=== PATIENT | male | born 1960 | race Caucasian/White ===

== ENCOUNTER 2019-02-23 07:17 | Day surgery (SDC) | payer MEDICAID ==
[~2019-02-23] VITALS: Ht 170.2 cm; Wt 81.8 kg
[2019-02-23] VITALS (16 sets, daily range): BP systolic 106–145; BP diastolic 53–85
[2019-02-23] MEDS ORDERED: normal saline 1000ml 1,000 ML IV PRN (07:40)
[2019-02-23] MEDS ORDERED: CAPE500T (08:46)
[2019-02-23] MEDS ORDERED: ONDA8TAB6 PO (08:46)
[2019-02-23] MEDS ORDERED: PROC-8 (08:47)
[2019-02-23 09:29] LABS: BASOPHILS % (AUTO) 0.4 % (0-1); EOSINOPHILS # (AUTO) 0.1 X10'3 (0-0.9); EOSINOPHILS % (AUTO) 1.7 % (0-6); HEMATOCRIT 37.8 % (42.0-52.0); HEMOGLOBIN 12.8 g/dl (14.0-17.9); LYMPHOCYTES # (AUTO) 0.9 X10'3 (1.1-4.8); LYMPHOCYTES % (AUTO) 19.1 % (21-51); MEAN CORPUSCULAR HEMOGLOBIN 29.8 PG (27.0-31.0); MEAN CORPUSCULAR HGB CONC 33.7 g/dL (33.0-36.5); MEAN CORPUSCULAR VOLUME 88.3 FL (78-98); MEAN PLATELET VOLUME 7.3 FL (7.4-10.4); MONOCYTES # (AUTO) 0.4 X10'3 (0-0.9); MONOCYTES % (AUTO) 7.8 % (2-12); NEUTROPHILS # (AUTO) 3.3 X10'3 (1.8-7.7); PLATELET COUNT 195 X10'3 (140-440); RED BLOOD COUNT 4.28 X10'6 (4.70-6.10); RED CELL DISTRIBUTION WIDTH 14.7 % (11.5-14.5); WHITE BLOOD COUNT 4.6 X10'3 (4.5-11.0)
[2019-02-23 09:34] LABS: ALBUMIN 3.5 G/DL (3.4-5.0); ANION GAP 6 (8-16); BLOOD UREA NITROGEN 13 MG/DL (7-18); BUN/CREATININE RATIO 27.1 (5.4-32.0); CALCIUM 8.4 MG/DL (8.5-10.1); CHLORIDE 111 MMOL/L (99-107); CREATININE 0.48 MG/DL (0.60-1.10); GLUCOSE 85 MG/DL (70-104); POTASSIUM 3.9 MMOL/L (3.5-5.1); SODIUM 143 MMOL/L (135-145); TOTAL CARBON DIOXIDE 26.2 MMOL/L (24-32); eGFR > 90 ML/MIN
[2019-02-23] MEDS ORDERED: midazolam 2 mg/2 ml injection ONE (10:12)
[2019-02-23] MEDS ORDERED: fentaNYL/PF 50MCG/1 ML 2ML syringe ONE (10:12)
[2019-02-23] MEDS ORDERED: fentaNYL/PF 50MCG/1 ML 2ML syringe IV PRN (10:15)
[2019-02-23] MEDS ORDERED: midazolam 2 mg/2 ml injection IV PRN (10:15)
[2019-02-23] MEDS ORDERED: LIDOcaine 1% 30ml preserv. free vial SQ ONE (10:15)
[2019-02-23] MEDS ORDERED: gelatin sponge, absorbable (Gelfoam 12-7MM) sponge TP ONE (10:17)
[2019-02-23] MEDS ORDERED: HYDROcodone/acetaminophen 5mg/325mg tablet PO PRN ×2 (11:00)
[2019-02-23 11:04] LABS: ELLIPTOCYTES FEW; PLATELET ESTIMATE NORMAL
[2019-02-23] MEDS ORDERED: heparin sodium, porcine/PF 100unit/ml 5ML syringe IV ONE (14:50)
[2019-02-23] MEDS ORDERED: heparin sodium, porcine/PF 100unit/ml 5ML syringe IV SCH (16:00)
== END 2019-02-23 15:00 | disposition home or self-care (01) ==
LOC: SSTAY O 07:17
PROVIDERS: ATTEND Radiology Vascular & Interventional Radiology
DX: C34.91 Malignant neoplasm of unspecified part of right bronchus or lung (principal); Z85.038 Personal history of other malignant neoplasm of large intestine; Z79.899 Other long term (current) drug therapy; Z98.890 Other specified postprocedural states
CPT/HCPCS: 32405; 36415; 71045; 77012; 80048; 85025; 85610; 99152; 99153; C1729; J1642; J2250; J3010; J7030